=== PATIENT | female | born 1960 | race Two or more races ===

== ENCOUNTER 2020-04-08 10:02 | Emergency (ER) | payer OTHER ==
[2020-04-08 10:10] VITALS: TEMP 96.6; BMI 22.8
--- NOTE | 2020-04-08 10:30 | PDOC ---
History of Present Illness - General Chief Complaint: Weakness Stated Complaint: WEAKNESS,LETHARGY, FALL Time Seen by Provider: 04/08/20 10:26 - History of Present Illness Initial Comments: Shasha Acuña is a 59yo woman with a PMH of NIDDM, HTN, OA, recently seen at urgent care for left low back pain with sciatica (given naproxen and flexeril) who was brought to the ED by her daughter due to altered mental status this morning. Her daughter said that her mother may have taken an extra naproxen yesterday, but she was previously helping the patient take her medication. The daughter subsequently took the medication away last night as she was afraid that the pt overdosed; she says that her mother seemed somewhat confused last night, saying that she had called her daughter about taking extra medication when she had not done so. The daughter went to check on the pt this morning and found her poorly responsive, confused, and breathing abnormally. She also noted that the pt felt cold to touch and was shivering. She was very concerned and came to the ED immediately. As far as the daughter is aware, the pt has been eating normally until this morning. She is not aware of any recent symptoms, though she notes that they we re told on Saturday at urgent care that the patient had a temperature of 102; she has not had any fevers at home since that time. She has not taken any additional medications other than her BP meds, Januvia, and the recently prescribed naproxen and flexeril. Per the daughter, the patient is normally alert and oriented, independent, and active at baseline. Past History - Medical History Allergies/Adverse Reactions: Allergies Allergy/AdvReac Type Severity Reaction Status Date / Time No Known Allergies Allergy Verified 04/08/20 10:10 Home Medications: Ambulatory Orders Lisinopril [Prinivil] 20 mg PO DAILY 05/13/13 Sitagliptin Phos/Metformin HCl [Janumet 50-1,000 mg Tablet] 1 each PO BID 05/13/13 Omeprazole 20 mg PO DAILY 03/16/19 Anemia: No Asthma: No Cancer: No Cardiac Disorders: No CVA: No COPD: No CHF: No Dementia: No Diabetes: Yes GI Disorders: Yes (H.PYLORI) Disorders: No HTN: Yes Hypercholesterolemia: No Liver Disease: No Seizures: No Thyroid Disease: No - Surgical History Abdominal Surgery: No Appendectomy: No Cardiac Surgery: No Cholecystectomy: No Lung Surgery: No Neurologic Surgery: No Orthopedic Surgery: No - Reproductive History Is Patient Now?: No - Immunization History Immunization Up to Date: Yes - Psycho-Social/Smoking History Smoking History: Never smoked Have you smoked in the past 12 months: Yes Number of Cigarettes Smoked Daily: 4 Information on smoking cessation initiated: Yes - Substance Abuse Hx (Audit-C & DAST Scrn) How often the patient has a drink containing alcohol: Never Score: In Men: 4 or > Positive; In Women: 3 or > Positive: 0 Screen Result (Pos requires Nsg. Audit-10AR): Negative In the last yr the pt used illegal drug/Rx for NonMed reason: No Score: Yes response is considered Positive: 0 Screen Result (Positive result requires Nsg. DAST-10): Negative Review of Systems - Review of Systems Comments:: Could not adequately obtain due to altered mental status *Physical Exam - Vital Signs Last Vital Signs Temp Pulse Resp BP Pulse Ox 96.6 F L 107 H 21 H 111/92 100 04/08/20 10:07 04/08/20 10:07 04/08/20 10:07 04/08/20 10:04/08/20 10:07 - Physical Exam General: In respiratory acute distress, appears ill HEENT: Atraumatic, PERRL, EOMI, MMM, voice normal, no neck stiffness Cards: Tachycardic, no murmur appreciated Pulm: Markedly tachypnic, consistently deep breaths, clear to auscultation Abd: Soft, nontender, nondistended Ext: Atraumatic. No LE edema. Weak but moves all extremities against gravity Skin: Normal color, no rashes or lesions Neuro: Awake but sleepy, oriented to self and place (states August 2001), CN grossly intact, normal speech, motor/sensory symmetric Procedures - Central Line Central Line Lumen: triple Central Line Position: internal jugular (R) Anesthesia: 1% Lidocaine Amount of anesthesia (ccs): 2 Complications: none Post Central Line Insertion: sutured, good blood return, position confirmed w/ CXR Progress: Due to sudden hypotension the decision was made to place a central venous catheter for administration of vasopressors. Risks and benefits were discussed with the patient's daughter in detail. Consent was obtained verbally. The patient was prepped and draped in usual sterile fashion. 2cc of 1% lidocaine was used for local anesthesia. Under ultrasound guidance, a triple lumen catheter was placed in the right IJ vein using Seldinger technique. Placement was confirmed with ultrasound. The catheter was dressed with an antibiotic- containing dressing. The patient tolerated the procedure well, and no immediate complications were appreciated. Estrella Lopez PGY3 - Intubation Time of Intubation: 14:00 Intubation Method: orotracheal Blade used: Glidescope Tube Size (Fr): 7.5 Medications: Etomidate (20), Rocuronium (50) Tube position @ lip (cm): 23 Tube position confirmed by: Direct visualization, CO2 detector, Chest x-ray, Sylwia ath sounds Breath Sounds after Intubation: equal Intubation Complications: no complications Post Intubation Xray: Yes ED Treatment Course - LABORATORY CBC & Chemistry Diagram: 04/08/20 17:33 04/08/20 17:33 - RADIOLOGY Radiology Studies Ordered: Category Date Time Status HEAD CT WITHOUT CONTRAST [CT] Stat CT Scan 04/08/20 10:27 Ordered CHEST X-RAY PORTABLE* [RAD] Stat Radiology 04/08/20 10:26 Ordered Medical Decision Making - Medical Decision Making 04/08/20 10:29 Shasha Acuña is a 59yo woman with a PMH of NIDDM, HTN, OA, recently seen at [facility] for left low back pain with sciatica (given naproxen and flexeril) who was brought to the ED by her daughter due to altered mental status this morning. Her daughter said that her mother may have taken an extra naproxen yesterday, but she was previously helping the patient take her medication. The daughter subsequently took the medication away last night as she was afraid that the pt overdosed; she says that her mother seemed somewhat confused last night, saying that she had called her daughter about taking extra medication when she had not done so. The daughter went to check on the pt this morning and found her poorly responsive, confused, and breathing abnormally. She also noted that the pt felt cold to touch and was shivering. She was very concerned and came to the ED immediately. As far as the daughter is aware, the pt has been eating normally until this morning. She is not aware of any recent symptoms, though she notes that they were told on Wednesday at urgent care that the patient had a temperature of 102; she has not had any fevers at home since that time. She has not taken any additional medications other than her BP meds, Januvia, and the recently prescribed naproxen and flexeril. Per the daughter, the patient is normally alert and oriented, independent, and active at baseline. - Patient appears ill. Unlikely overdose as pt does not reportedly have any concerning medications; one extra naproxen does not account for symptoms - Broad differential including sepsis though no source as pt's daughter is unaware of any recent symptoms, unknown trauma, DKA - CBC, CMP, VBG, UA, BCx, UCx, lactate, trop, coags, EKG, CXR - Tachycardic, possible dehydration 04/08/20 10:47 - Glucose 37 - Given 1x amp D50 - D5 LR started at 100/hr - Attempting to obtain juice, crackers. Not currently available in the ED 04/08/20 11:13 - Rectal temp 93.3F - Justus kymgger - TSH, free T4, B-hydroxybuterate added to labs due to possible myxedema coma 04/08/20 11:35 - CBC resulted. WBC 29.6, platelets 57 - VBG with Ph 6.9, CO2 26, O2 57, yxmn6ey 5.7, BE -25 - Chemistry, lactate pending - Vanc and zosyn ordered 04/08/20 12:03 - Chemistry notable for hyponatremia to 130, hgb 10, platelets 57. ph 6.9, co2 26, o2 57, BE -25. - Lactate 15 - Elevated tbili to 6.6, elevated LFT's - Trop 0.09 - Aggressive fluid repletion for septic shock; may need pressors - Bicarb drip in D5 04/08/20 13:16 - POCUS gallbladder w/ wall measuring over 9mm, stone in neck. Suspect sepsis secondary to cholecystitis. Flagyl added - ICU team evaluated pt. Will accept for ICU, but called GI and surgery to ensure that pt would be able to obtain intervention immediately due to likely gallbladder pathology. Per discussion, may be unable to have immediate intervention - Discussed with family. Due to severity of illness, will plan to transfer the patient. Plan to place central line. Will obtain consent, discussed in detail with the patient's daughter, who agrees. 04/08/20 15:26 - Patient became unresponsive and markedly hypotensive with MAP in the 30's - Phenylephrine given peripherally - Central line placed emergently; risks and benefits had been verbally discussed with the patient's daughter previously. Repeat labs sent - Intubated for respiratory distress. Blood noted in oropharynx on insertion of glidescope. - Official US completed, read to be completed 04/08/20 15:53 - Official US with stone near neck of GB but no duct dilation - Dr Arroyo spoke to GI (Figueroa Riddle and Jennifer; Dr Riddle will see). Recommending IR consult - Spoke to IR, will take for perc mehran tube - Likely DIC. Blood from mouth, nose, rectum. Dark red blood from NGT. - Massive transfusion protocol started - pH 6.7, hgb 5.8, wbc 15, platelets 38. Potassium 6.6 - Lactate 15 - Calcium for hyperkalemia. Bicarb pushes PRN 04/08/20 18:09 - Patient taken for CTA CAP. Noted cirrhosis, esophogeal varicies. Significant fluid-filled dilation of stomach and small bowel. Per discussion, patient's daughter does endorse that she drinks heavily - Decision made to cancel IR procedure due to no GP pathology - Total 3L grossly bloody NGT output - Repeat labs sent again 04/08/20 18:25 - Now on levo 30, starting vaso - ETCO2 now in 30's from high of about 50. Map around 65. HR in 90's - Pt accepted for transfer to [facility] for surgical intervention - Consent to be signed by daughter. Transfer discussed in detail - Patient received a total of bicarb x7, calcium chloride x2, 5u pRBC, 3 FFP, 2 platelets. Pending additional 2u RBC, 3 FFP for transfer 04/08/20 19:29 - Additional 1u RBCs, 3x bicarb, 2x calcium given prior to transfer - EMS at bedside - Vasopressin and Phenylephrine started for hypotension, MAPs down to 40's Seen with Dr Cruz Lopez PGY3 Discharge - Discharge Information Problems reviewed: Yes Clinical Impression/Diagnosis: Multiorgan failure, Septic shock, UTI (urinary tract infection), Respiratory failure, Metabolic acidosis Condition: Critical Disposition: TRANSFER ACUTE CARE/OTHER HOSP - Follow up/Referral Referrals: Barrera Gamble MD [Primary Care Provider] - - Patient Discharge Instructions - Post Discharge Activity
[2020-04-08] MEDS ORDERED: DEXTROSE 50%-WATER 25 GM/50 ML DISP.SYRIN ONE (10:41)
[2020-04-08] MEDS ORDERED: DEXTROSE 50%-WATER - 25 GM/50 ML VIAL IVPUSH ONE (10:46)
[2020-04-08] MEDS: LACTATED RINGERS SOLUTION 1000 ML INFUS.BAG IV ONE ×2 (10:58→11:00)
[2020-04-08] MEDS ORDERED: DEXTROSE 5%-LACTATED RINGERS 1,000 ML IV SCH (11:00)
[2020-04-08 11:19] LABS: BASO % 0.1 % (0-2.0); EOS % 2.2 % (0-4.5); HEMATOCRIT 33.4 % (32.4-45.2); HEMOGLOBIN 10.2 GM/dL (10.7-15.3); LYMPH % 7.3 % (8-40); MCH 32.5 pg (25.7-33.7); MCHC 30.5 g/dl (32.0-36.0); MEAN CELL VOLUME 106.8 fl (80-96); MEAN PLT VOLUME 10.4 fl (7.5-11.1); MONO % 1.1 % (3.8-10.2); NEUT % 89.3 % (42.8-82.8); PLATELET COUNT 57 K/MM3 (134-434); RBC 3.12 M/mm3 (3.60-5.2); RDW 18.1 % (11.6-15.6); WHITE BLOOD COUNT 29.6 K/mm3 (4.0-10.0)
[2020-04-08 11:27] LABS: VENOUS BASE EXCESS -25.2 mmol/L (-2-2); VENOUS O2 SATURATION 70.9 % (70-80); VENOUS PCO2 26.5 mmHg (38-52)
[2020-04-08 11:30] LABS: VENOUS PH 6.947 (7.310-7.410)
[2020-04-08] MEDS ORDERED: PIPERACILLIN/TAZOB 3.375 GM 3.375 GM in DEXTROSE 5%-WATER - 50 ML IVPB ONE (11:33)
[2020-04-08] MEDS ORDERED: VANCOMYCIN 1 GM in D5W (PRE-DOCKED) 1,000 MG/250 ML IVPB ONE (11:33)
[2020-04-08] MEDS ORDERED: PIPERACILLIN/TAZOB 3.375 GM 3.375 GM/50 ML BAG IVPB ONE (11:42)
[2020-04-08] MEDS ORDERED: VANCOMYCIN 1 GRAM (PRE-DOCKED) 1,000 MG/250 ML BAG IVPB ONE (11:42)
[2020-04-08 11:51] LABS: ALBUMIN 1.9 g/dl (3.4-5.0); BILIRUBIN,TOTAL 6.6 mg/dL (0.2-1); BLOOD UREA NITROGEN 65.2 mg/dL (7-18); CALCIUM 8.8 mg/dL (8.5-10.1); CREATININE 3.1 mg/dL (0.55-1.3); POTASSIUM 4.6 mmol/L (3.5-5.1)
[2020-04-08] MEDS ORDERED: LACTATED RINGERS SOLUTION 1000 ML INFUS.BAG IV ONE (11:54)
--- NOTE | 2020-04-08 11:59 | PDOC ---
Documentation entered by Ivone Baird SCRIBE, acting as scribe for Michael Arroyo MD. Michael Arroyo MD: This documentation has been prepared by the westonibeOli Lincy, SCRIBE, under my direction and personally reviewed by me in its entirety. I confirm that the documentation accurately reflects all work, treatment, procedures, and medical decision making performed by me. Attending Attestation - Resident Resident Name: JessicaEstrella - ED Attending Attestation I have performed the following: I have examined & evaluated the patient, The case was reviewed & discussed with the resident, I agree w/resident's findings & plan, Exceptions are as noted - HPI HPI: 04/08/20 10:37 The patient is a 59-year-old female with a past medical history significant for DM and HTN who presents to the emergency department with AMS and weakness since yesterday. The patient was seen at urgent care on Saturday for back pain, she was given a shot and PO medication for the pain and was tested for COVID secondary to a slight fever. The patients daughter reports the patient was doing fine following the UC visit until yesterday when the patient was noted to be weak. The daughter reports the patient was noted to be more confused today with difficulty getting up and ambulating. The daughter brought the patient to the ER for further management. Denies fever, chills, chest pain, nausea, vomiting, diarrhea, back pain, urinary complaints or change in bowel habits. Denies headache or dizziness. - Physicial Exam PE: 04/08/20 10:42 GENERAL: The patient is awake, alert, and oriented x2, slow to respond HEAD: Normocephalic, atraumatic. EYES: extraocular movements intact, sclera anicteric, conjunctiva clear. ENT: +dry mucous membranes. Normal voice, NECK: Normal range of motion, supple without lymphadenopathy, JVD, or masses. LUNGS: Breath sounds equal, clear to auscultation bilaterally. No wheezes, no crackles, no rales. HEART: Regular rate and rhythm, normal S1 and S2 without murmur, rub or gallop. ABDOMEN: Soft, nontender, normoactive bowel sounds. No guarding, no rebound. No masses. EXTREMITIES: Normal range of motion, no edema. No clubbing or cyanosis. No cords, erythema, or tenderness. NEUROLOGICAL: Alert and oriented x2. No facial asymmetry, Normal speech, moveing all 4 extremities spontaneously PSYCH: Normal mood, normal affect. SKIN: Warm, Dry, normal turgor, no rashes or lesions noted. - Critical Care Time Total Critical Care Time: 160 Critical Care Statement: The care of this patient involved high complexity decision making to prevent further life threatening deterioration of the patient's condition and/or to evaluate & treat vital organ system(s) failure or risk of failure. - Medical Decision Making 04/08/20 10:33 59y F hx of htn, dm presents with AMS had recently gone to for back pain, was fine until yesterday when she became more weak/sleaping poorly noted to be AMS this morning by daughter no focal complaints by patient on exam, pt noted to be dry, tachypneic, aox2, neuro intact ddx wide - possible anemia, metabolic derangement, infection sepsi orderset obtained will give fluids as she appears dry will obtain bgm head ct 04/08/20 11:50 labs reviewed noted for acidosis, likely metabolic acidosis - also noted hyperthermic, hypogclyemic - given d50 also noted with significant WBC elevatino - ?sepsis - pt startedon broad spectrum abx awaiting UA, CMP 04/08/20 11:53 chemistry noted for significant AG LFTs elevated T Buili 04/08/20 11:58 will obtain RUQ US pts BP low - will continue fluid resusitation, may need pressors if not responding awaiting lactic acid and determnation of source 04/08/20 12:47 The patient's lab urine also reviewed and noted for UTI, lactic acid elevated to 21 The patient's right upper quadrant ultrasound bedside noted for thickened gallbladder wall, concern for possible cholangitis Case discussed with ICU 04/08/20 14:16 forma US noted for 4.5m GB neck stone concern for cholangitis/sepsis will page GI for ERCP pt bp persistently low, in process of puttig central line will start peripheral levephed 04/08/20 14:53 Central line was placed by dr. Lopez under my observation due to hypotension. Shortly after the patient's respiratory rate decreased and patient became less responsive, there were pulses palpable. The patient was moved to room 10 the patient had a brief episode of bradycardia/asystole lasting approximately 6 or 7 seconds however heart rate spontaneously returned with palpable pulses. The patient was given dextrose 50, 2 amps of bicarb, patient's blood pressure was approximately 90s over 60s at this point status post peripheral pressros pt was intubated using RSI with first pass success by Dr. Lopez, there was a significant amount of red blood in her posterior pharynx when dr. Lopez looked into her airway. pt started on levophed and bicarb gtt The patient's abdomen does appear more firm than previously, questionable perfed abdomen. NTG placed 04/08/20 15:09 case car[facility] surgery, concern for perforation they will come see the patient. awaiting GI call back originally had called dr. Riddle but his call does not start until 5pm. call paged out to dr. Zamudio / GI Service 04/08/20 15:42 surgery bedside evaluating the patient. case [facility] GI recommends discussing with IR for percchole will obtain DIC labs/MTP hgb dropped from 10-->5 NGT was curled in [facility], after replacing, pt had significant amount of blood in the NGT, 04/08/20 15:47 = 04/08/20 16:[address] abd to determine cause of her abd distension - blood vs air pt recdeived 4u PRBC, will give FFP and platelets 04/08/20 17:58 case carlitos du - surgery - pt does not sound like a stable surgical candidate at this time, but recommends ICU transfer - case with ICU from [facility] -accepted by ICU, to dr. Graf service in the ICU will continue to stabilizing the patient pt with large amount of bblood from the NGT onCT, pt noted to have cirrhosis and possible varicies - daughter endorsed pt does have a hx of drinking, but does not know if she has a hx of GIB/ulcers. willl add octreotide. continuing MTP, prn bicarb gtt Heart Score/ECG Review - ECG Impressions Comment:: 04/08/20 11:51 Twelve-lead EKG was performed and reviewed by me. There is normal sinus rhythm with a rate of 122 non specific TWI abnormality sinus tachycardia Discharge - Discharge Information Problems reviewed: Yes Clinical Impression/Diagnosis: Multiorgan failure, Septic shock, Metabolic acidosis UTI (urinary tract infection) Qualifiers: Urinary tract infection type: site unspecified Hematuria presence: with hematuria Qualified Code(s): N39.0 - Urinary tract infection, site not specified Respiratory failure Qualifiers: Chronicity: acute Respiratory failure complication: hypoxia Qualified Code(s): J96.01 - Acute respiratory failure with hypoxia Condition: Critical Disposition: TRANSFER ACUTE CARE/OTHER HOSP - Admission No - Follow up/Referral Referrals: Barrera Gamble MD [Primary Care Provider] - - Patient Discharge Instructions - Post Discharge Activity - Transfer to Acute Care Facility [facility] Accepting Physician:: Dr. Antunez
[2020-04-08 12:06] LABS: ACTIVATED PTT 88.5 SECONDS (25.2-36.5); INR 2.71 (0.83-1.09); PROTHROMBIN TIME (PATIENT) 32.3 SEC (9.7-13.0)
[2020-04-08 12:11] LABS: EPI CELLS >36 /uL (0-25.1); HYALINE CASTS 24 /uL (0-3.1); URINE APPEARANCE TURBID; URINE BILIRUBIN 1+ (NEGATIVE); URINE COLOR DK YELLOW; URINE GLUCOSE (UA) NEGATIVE (NEGATIVE); URINE KETONE TRACE (NEGATIVE); URINE LEUK ESTERASE 1+ (NEGATIVE); URINE NITRITE POSITIVE (NEGATIVE); URINE PROTEIN 2+ (NEGATIVE); URINE WBC 160 /uL (0-25.8)
[2020-04-08] MEDS ORDERED: MUPIROCIN 2% TOPICAL OINTMENT FOR DECOLONIZATION NS SCH (12:30)
[2020-04-08] MEDS ORDERED: SODIUM BICARBONATE 8.4% - 150 MEQ in DEXTROSE 5%-WATER - 950 ML IVPB SCH (12:30)
[2020-04-08] MEDS ORDERED: SODIUM BICARBONATE 8.4% - 150 MEQ in DEXTROSE 5%-WATER - 950 ML IVPB ONE (12:45)
[2020-04-08 12:47] LABS: URINE BACTERIA 96.5 /uL (0-1359); URINE RBC 102.5 /uL (0-23.9); YEAST NON SEEN (NEGATIVE)
[2020-04-08 12:55] LABS: ANISOCYTOSIS 2+; MACROCYTOSIS 2+; PLATELET ESTIMATE DECREASED
[2020-04-08] MEDS ORDERED: PHENYLEPHRINE HCL 10 MG/1 ML SINGLE DOSE VIAL IVPB PRN ×2 (14:00→19:47)
[2020-04-08] MEDS ORDERED: NOREPINEPHRINE BITARTRATE 4 MG/4 ML ML IV ONE ×2 (14:10→14:11)
[2020-04-08] MEDS ORDERED: PHENYLEPHRINE HCL 10 MG/1 ML SINGLE DOSE VIAL ONE ×2 (14:12→19:02)
[2020-04-08] MEDS ORDERED: NOREPINEPHRINE BITARTRATE 16,000 MCG in SODIUM CHLORIDE 484 ML IV SCH (14:15)
[2020-04-08] MEDS ORDERED: RAPID SEQUENCE INTUBATION KIT NR ONE (14:33)
[2020-04-08 14:40] LABS: VENOUS PCO2 54.3 mmHg (38-52)
[2020-04-08 14:43] LABS: VENOUS PH < 6.717 (7.310-7.410)
[2020-04-08] MEDS ORDERED: FENTANYL INJECTION 500 MCG in DEXTROSE 5%-WATER - 90 ML IVPB SCH (14:45)
[2020-04-08] MEDS ORDERED: DEXMEDETOMIDINE IN 0.9 % NACL 400 MCG/100 ML VIAL IVPB SCH (14:45)
--- NOTE | 2020-04-08 14:46 | EKG ---
Test Reason : Blood Pressure : / mmHG Vent. Rate : 122 BPM Atrial Rate : 122 BPM P-R Int : 176 ms QRS Dur : 100 ms QT Int : 284 ms P-R-T Axes : 098 037 116 degrees QTc Int : 404 ms ATRIAL FIBRILLATION NONSPECIFIC ST AND T WAVE ABNORMALITY ABNORMAL ECG Confirmed by TANNER ALONSO MD ([id number]) on 04/08/2020 2:46:38 PM Referred By: Confirmed By:TANNER ALONSO MD
[2020-04-08 14:58] LABS: BASO % 0.4 % (0-2.0); EOS % 1.8 % (0-4.5); HEMOGLOBIN 5.8 GM/dL (10.7-15.3); LYMPH % 13.1 % (8-40); MCH 33.7 pg (25.7-33.7); MCHC 29.1 g/dl (32.0-36.0); MEAN PLT VOLUME 10.3 fl (7.5-11.1); MONO % 0.9 % (3.8-10.2); NEUT % 83.8 % (42.8-82.8); PLATELET COUNT 38 K/MM3 (134-434); RBC 1.73 M/mm3 (3.60-5.2); RDW 18.4 % (11.6-15.6); WHITE BLOOD COUNT 14.8 K/mm3 (4.0-10.0)
[2020-04-08] MEDS ORDERED: TRIPLE LUMEN FLUSH 4 ML ML IVPUSH PRN (15:01)
[2020-04-08 15:10] LABS: ALBUMIN 1.1 g/dl (3.4-5.0); BLOOD UREA NITROGEN 58.1 mg/dL (7-18); CALCIUM 8.2 mg/dL (8.5-10.1); CREATININE 2.9 mg/dL (0.55-1.3)
[2020-04-08 15:15] LABS: BILIRUBIN,TOTAL 3.8 mg/dL (0.2-1)
[2020-04-08 15:37] LABS: POTASSIUM 6.6 mmol/L (3.5-5.1)
[2020-04-08] MEDS ORDERED: PANTOPRAZOLE SODIUM 80 MG in SODIUM CHLORIDE 100 ML IVPB ONE (15:48)
--- NOTE | 2020-04-08 15:56 | CON.GI ---
Consult Consult Specialty:: GI coverage - History of Present Illness History of Present Illness: 59 y/o F with PMH of cirrhosis was admitted with change in mental status and weakness. In the Er, she was noted to have right upper quadrant pain. Her lactid acid was high, low platelets, elevated INR> Her abdominal ultrasound was noted to have partially distended gallbladder with as tone in the neck of the gallbladder her CBD was normal. Her T. bilirubin was 6 which decreased to 3 after IV hydration. She was noted to have pyuria.She developed respiratory failure and was eventually intubated. Went to see the patient in the Catscan and discuseed films with Dr Gibson. The Gallbladder was contracted and no evidence of dilated CBD.The Stomach was markedly dilated and and jejeunum was dilated consistent with small bowel obstruction. The NGT was in place but was nor draining Patient later in the ED developed hematemsis and rectal bleeding. - Past Medical History Cardio/Vascular: Yes: HTN ...: No Endocrine: Yes: Diabetes Mellitus - Past Surgical History Past Surgical History: Yes: - Alcohol/Substance Use Hx Alcohol Use: No History of Substance Use: reports: None - Smoking History Smoking history: Never smoked Have you smoked in the past 12 months: Yes Aproximately how many cigarettes per day: 4 - Social History ADL: Independent Occupation: retired, former seamstress History of Recent Travel: No Home Medications - Allergies Allergies/Adverse Reactions: Allergies Allergy/AdvReac Type Severity Reaction Status Date / Time No Known Allergies Allergy Verified 04/08/20 10:10 - Home Medications Home Medications: Ambulatory Orders Lisinopril [Prinivil] 20 mg PO DAILY 05/13/13 Sitagliptin Phos/Metformin HCl [Janumet 50-1,000 mg Tablet] 1 each PO BID 05/13/13 Omeprazole 20 mg PO DAILY 03/16/19 Physical Exam-GI Vital Signs: Vital Signs Temperature 96.6 F L 04/08/20 10:07 Pulse Rate 126 H 04/08/20 14:20 Respiratory Rate 20 04/08/20 14:50 Blood Pressure 97/54 L 04/08/20 14:20 O2 Sat by Pulse Oximetry (%) 99 04/08/20 11:30 Constitutional: Yes: Other (intubated unresponsive) Eyes: Yes: Sclera Icterus Neck: Yes: Trachea Midline Cardiovascular: Yes: Regular Rate and Rhythm Respiratory: Yes: CTA Bilaterally Gastrointestinal Inspection: Yes: Distention ...Auscultate: Yes: No Bowel Sounds ...Palpate: Yes: Soft. No: Firm/Rigid, Guarding, Hepatomegaly, Mass, Pulsatile Mass, Splenomegaly, Tenderness, Tenderness, Epigastium, Tenderness, Rebound ...Percussion: Yes: Tympanitic Labs: CBC, BMP 04/08/20 13:40 04/08/20 13:40 INR, PTT INR 2.71 (0.83-1.09) H 04/08/20 11:50 CBC,CMP WBC 6.5 K/mm3 (4.0-10.0) 04/08/20 17:33 RBC 2.08 M/mm3 (3.60-5.2) L 04/08/20 17:33 Hgb 6.2 GM/dL (10.7-15.3) L* 04/08/20 17:33 Hct 19.7 % (32.4-45.2) L 04/08/20 17:33 MCV 94.4 fl (80-96) D 04/08/20 17:33 MCH 29.8 pg (25.7-33.7) D 04/08/20 17:33 MCHC 31.6 g/dl (32.0-36.0) L 04/08/20 17:33 RDW 16.9 % (11.6-15.6) H 04/08/20 17:33 Plt Count 18 K/MM3 (134-434) L* D 04/08/20 17:33 MPV 8.5 fl (7.5-11.1) D 04/08/20 17:33 Absolute Neuts (auto) 5.3 K/mm3 (1.5-8.0) 04/08/20 17:33 Neutrophils % 81.2 % (42.8-82.8) 04/08/20 17:33 Neutrophils % (Manual) 39.5 % (42.8-82.8) L 04/08/20 17:33 Band Neutrophils % 24.2 % 04/08/20 17:33 Lymphocytes % 15.8 % (8-40) D 04/08/20 17:33 Lymphocytes % (Manual) 11.0 % (8-40) D 04/08/20 17:33 Monocytes % 0.6 % (3.8-10.2) L 04/08/20 17:33 Monocytes % (Manual) 8 % (3.8-10.2) D 04/08/20 17:33 Eosinophils % 2.3 % (0-4.5) 04/08/20 17:33 Eosinophils % (Manual) 0.0 % (0-4.5) 04/08/20 17:33 Basophils % 0.1 % (0-2.0) 04/08/20 17:33 Basophils % (Manual) 0.0 % (0-2.0) 04/08/20 17:33 Myelocytes % (Man) 3 % (0-2) H D 04/08/20 17:33 Promyelocytes % (Man) 2 % (0-2) D 04/08/20 17:33 Blast Cells % (Manual) 0 % (0-0) 04/08/20 17:33 Nucleated RBC % 3 % (0-0) H 04/08/20 17:33 Metamyelocytes 12 % (0-2) H D 04/08/20 17:33 Hypochromia 0 04/08/20 13:40 Platelet Estimate Decreased 04/08/20 17:33 Polychromasia 0 04/08/20 13:40 Poikilocytosis 1+ 04/08/20 10:30 Anisocytosis 1+ 04/08/20 13:40 Microcytosis 0 04/08/20 13:40 Macrocytosis 0 04/08/20 13:40 Harper Cells 2+ 04/08/20 13:40 Sodium 133 mmol/L (136-145) L 04/08/20 17:33 Potassium 7.8 mmol/L (3.5-5.1) H* 04/08/20 17:33 Chloride 85 mmol/L (98-107) L 04/08/20 17:33 Carbon Dioxide 19 mmol/L (21-32) L 04/08/20 17:33 Anion Gap 29 MMOL/L (8-16) H 04/08/20 17:33 BUN 51.1 mg/dL (7-18) H 04/08/20 17:33 Creatinine 2.6 mg/dL (0.55-1.3) H 09/11/20 17:33 Est GFR (CKD-EPI)AfAm 22.18 04/08/20 17:33 Est GFR (CKD-EPI)NonAf 19.14 04/08/20 17:33 POC Glucometer 275 UNITS (80-120) 04/08/20 18:36 Random Glucose 402 mg/dL (74-106) H* 04/08/20 17:33 Lactic Acid > 15.0 mmol/L (0.4-2.0) H* 04/08/20 13:40 Calcium 7.9 mg/dL (8.5-10.1) L 04/08/20 17:33 Phosphorus 12.9 mg/dL (2.5-4.9) H* 04/08/20 17:33 Magnesium 2.8 mg/dL (1.8-2.4) H 04/08/20 17:33 Total Bilirubin 1.3 mg/dL (0.2-1) H D 04/08/20 17:33 AST 213 U/L (15-37) H 04/08/20 17:33 ALT 44 U/L (13-61) 04/08/20 17:33 Alkaline Phosphatase 88 U/L (45-117) 04/08/20 17:33 Troponin I 0.09 ng/ml (0.00-0.05) H 04/08/20 10:30 Total Protein 1.2 g/dl (6.4-8.2) L 04/08/20 17:33 Albumin 0.5 g/dl (3.4-5.0) L 04/08/20 17:33 Total Amylase 107 U/L (25-115) 04/08/20 10:30 Lipase 1702 U/L (73-393) H 04/08/20 10:30 Beta-Hydroxybutyrate 3.6 mg/dL (0.2-2.8) H 04/08/20 10:30 TSH 0.52 uIU/ml (0.358-3.74) 04/08/20 10:30 Thyroxine (T4) 7.7 ug/dl (4.5-13.9) 04/08/20 10:30 Assessment/Plan A> 1)Septic shock associated with DIC possibly secondary to Urosepsis unlikely secondary to cholangitis because of normal CBD. Patient noted to has a stone in Gallbladder neck although no evidence of cholecystitis and partially contracted. R> continue IV hydration please review with IR if percutaneous cholecystostomy is beneficial 2) Upper GI bleeding r/o varices ,peptic ulcer disease---emergent EGD was planned once medically unstable. Patient also noted to have lactic acidosis and evidence of SBO,the presence of gangrenous bowel was suspected. The patient was transferred for further evaluation and management. 3)Severe anemia- acute drop in hemoglobin in the absence of melena, rectal bleeding. This possibly from hydration and hemolysis from DIC. R> haptoglobin transfuse to HCT > 8 4)Elevated T.bili possibly secondary to sepsis 5) history of cirrhosis etiology unclear
--- NOTE | 2020-04-08 15:56 | CONSULT ---
Consult Consult Specialty:: Nephrology Reason for Consultation:: elias - History of Present Illness Chief Complaint: altered mental status and weakness since yesterday History of Present Illness: Pt is a 59 year old female with pmhx of dm, htn and osteoarthritis who presents with altered mental status and weakness. She is lethargic and unable to give history. Pt is crashing and a stat consult was called for elias. Her daughter is at bedside and assisted with history. Pt had left low back pain and went to urgent care on Saturday. She was given naproxen and flexeril. She continues to have have pain all week. She took extra naproxen. She was found have markedly elevated lactic acid. She developed progressive resp failure in the ER and was intubated. Pt was also hypotensive. - History Source History Provided By: Family Member, Medical Record - Past Medical History Cardio/Vascular: Yes: HTN ...: No Endocrine: Yes: Diabetes Mellitus - Past Surgical History Past Surgical History: Yes: - Alcohol/Substance Use Hx Alcohol Use: No History of Substance Use: reports: None - Smoking History Smoking history: Never smoked Have you smoked in the past 12 months: Yes Aproximately how many cigarettes per day: 4 - Social History ADL: Independent Occupation: retired, former seamstress History of Recent Travel: No Home Medications - Allergies Allergies/Adverse Reactions: Allergies Allergy/AdvReac Type Severity Reaction Status Date / Time No Known Allergies Allergy Verified 04/08/20 10:10 - Home Medications Home Medications: Ambulatory Orders Lisinopril [Prinivil] 20 mg PO DAILY 05/13/13 Sitagliptin Phos/Metformin HCl [Janumet 50-1,000 mg Tablet] 1 each PO BID 05/13/13 Omeprazole 20 mg PO DAILY 03/16/19 Family Medical History Family History: Unable to Obtain Review of Systems Unable to obtain ROS, reason: intubated Physical Exam Vital Signs: Vital Signs Temperature 96.6 F L 04/08/20 10:07 Pulse Rate 126 H 04/08/20 14:20 Respiratory Rate 20 04/08/20 14:50 Blood Pressure 97/54 L 04/08/20 14:20 O2 Sat by Pulse Oximetry (%) 99 04/08/20 11:30 Constitutional: Yes: Severe Distress Eyes: Yes: Conjunctiva Clear Cardiovascular: Yes: Tachycardia, S1, S2 Respiratory: Yes: Mechanically Ventilated Gastrointestinal: Yes: Distention Renal/: Yes: Incontinence Musculoskeletal: Yes: Muscle Weakness Edema: No Integumentary: Yes: Other (skin mottling lower extremities) Neurological: Yes: Lethargy Labs: CBC, BMP 04/08/20 13:40 04/08/20 13:40 Laboratory Tests 04/08/20 04/08/20 04/08/20 10:30 10:30 10:30 WBC 29.6 H Hgb 10.2 L Plt Count 57 L D VBG pH 6.947 L* POC VBG pCO2 26.5 L POC VBG pO2 56.9 H Sodium 130 L Potassium 4.6 Chloride 90 L Carbon Dioxide 8 L Anion Gap 31 H BUN 65.2 H Creatinine 3.1 H POC Glucometer Random Glucose 38 L* Lactic Acid AST 396 H ALT 109 H Urine Protein Urine Blood 04/08/20 04/08/20 04/08/20 10:30 10:40 11:30 WBC Hgb Plt Count VBG pH POC VBG pCO2 POC VBG pO2 Sodium Potassium Chloride Carbon Dioxide Anion Gap BUN Creatinine POC Glucometer 34 127 Random Glucose Lactic Acid 21.5 H* AST ALT Urine Protein Urine Blood 04/08/20 04/08/20 04/08/20 11:50 13:40 13:40 WBC 14.8 H Hgb 5.8 L* Plt Count 38 L D VBG pH POC VBG pCO2 POC VBG pO2 Sodium Potassium Chloride Carbon Dioxide Anion Gap BUN Creatinine POC Glucometer Random Glucose Lactic Acid > 15.0 H* AST ALT Urine Protein 2+ H Urine Blood 1+ H 04/08/20 04/08/20 13:40 13:40 WBC Hgb Plt Count VBG pH < 6.717 L* POC VBG pCO2 54.3 H POC VBG pO2 61.4 H Sodium 131 L Potassium 6.6 H* Chloride Carbon Dioxide 10 L Anion Gap BUN 58.1 H Creatinine 2.9 H POC Glucometer Random Glucose 54 L Lactic Acid AST 407 H ALT 104 H Urine Protein Urine Blood Imaging - Results Chest X-ray: Report Reviewed Problem List - Problems (1) Hyperkalemia Code(s): E87.5 - HYPERKALEMIA (2) ELIAS (acute kidney injury) Code(s): N17.9 - ACUTE KIDNEY FAILURE, UNSPECIFIED (3) Shock Code(s): R57.9 - SHOCK, UNSPECIFIED (4) Respiratory failure Code(s): J96.90 - RESPIRATORY FAILURE, UNSP, UNSP W HYPOXIA OR HYPERCAPNIA (5) Arthritis Code(s): M19.90 - UNSPECIFIED OSTEOARTHRITIS, UNSPECIFIED SITE Assessment/Plan Current Medications Generic Name Dose Route Start Last Admin Trade Name Freq PRN Reason Stop Dose Admin Chlorhexidine Gluconate 1 applic 04/08/20 22:00 Hibiclens For Decolonization - TP HS GWENDOLYN IV Flush 4 ml 04/08/20 15:01 Triple Lumen Flush IVPUSH PRN PRN Protocol Dextrose/Lactated Ringer's 1,000 mls @ 125 mls/hr 04/08/20 11:00 04/08/20 11:00 D5-Lr - IV 125 mls/hr ASDIR GWENDOLYN Administration Sodium Bicarbonate 150 meq/ 1,100 mls @ 125 mls/hr 04/08/20 12:45 04/08/20 14:04 Dextrose IVPB 04/08/20 21:32 125 mls/hr NOW ONE Administration Norepinephrine Bitartrate 16, 500 mls @ 9.375 mls/hr 04/08/20 14:15 04/08/20 14:20 000 mcg/ Sodium Chloride IV 5 mcg/min TITR GWENDOLYN 9.375 mls/hr Administration Protocol 5 MCG/MIN Fentanyl 500 mcg/ Dextrose 100 mls @ 0 mls/hr 04/08/20 14:45 04/08/20 14:55 IVPB 25 mcg/hr TITR GWENDOLYN 5 mls/hr Administration Titrate Dexmedetomidine/Sodium Chloride 400 mcg in 100 mls @ 2.654 mls/hr 04/08/20 14:45 04/08/20 15:10 Precedex 400 Mcg/100 Ml Inject IVPB 0.2 mcg/kg/hr TITR GWENODLYN 2.654 mls/hr Administration 0.2 MCG/KG/HR Pantoprazole Sodium 80 mg/ 100 mls @ 200 mls/hr 04/08/20 15:48 Sodium Chloride IVPB 04/08/20 16:17 ONCE ONE Mupirocin 1 applic 04/08/20 12:30 Bactroban Ointment (For Decolonization) - NS 04/13/20 12:29 BID GWENDOLYN Phenylephrine HCl 200 mcg 04/08/20 14:00 Carlos-Synephrine - IVPB Q3M PRN HYPOTENSION Impression 1. ELIAS 2. hyperkalemia 3. lactic acidosis 4. resp failure 5. shock 6. dm 7. hx htn 8. back pain 9. possible perforation with abd distension 10. anemia Plan - start bicarb drip, pushed two amps of bicarb - start pressors - cont vent support - treat potassium medically - surgery and GI eval - discussed with ER - pt is too unstable for dialysis therapy at this point - do not restart metformin, lisiniprol or naproxen - will require icu admission - pt has a distended abdomen that is suspicious of an intra-abdmonial process, surgery eval called - cont aggressive fluids - prognosis is guarded
[2020-04-08] MEDS ORDERED: SODIUM BICARBONATE 8.4% - 150 ML ONE (16:09)
[2020-04-08] MEDS: SODIUM BICARBONATE 8.4% 50 MEQ/50 ML DISP.SYRIN IVPUSH PRN ×6 (16:10→17:40)
[2020-04-08] MEDS ORDERED: CALCIUM CHLORIDE 1 GM/10 ML *DISP.SYRIN ONE ×2 (16:10→19:16)
[2020-04-08] MEDS: CALCIUM CHLORIDE 10% 1 GM/10 ML *VIAL IVPUSH PRN ×2 (16:28→17:00)
[2020-04-08] MEDS ORDERED: SODIUM BICARBONATE 8.4% - 50 ML ONE (16:31)
[2020-04-08] MEDS ORDERED: INSULIN REGULAR HUMAN 100 UNITS/ML *VIAL IVPUSH ONE ×2 (16:59→18:24)
[2020-04-08] MEDS ORDERED: ALBUTEROL SO4 0.042% IH SOL 1.25 MG/3 ML VIAL.NEB NEB ONE (16:59)
--- NOTE | 2020-04-08 17:14 | PN ---
Teaching Attending Note Name of Resident: Rosas Anderson ATTENDING PHYSICIAN STATEMENT I saw and evaluated the patient. I reviewed the resident's note and discussed the case with the resident. I agree with the resident's findings and plan as documented. SUBJECTIVE: Patient seen and examined in the ER. 59 F, DM, HTN, osteoarthritis. Admitted via the ER due to altered mental status and weakness. Apparently have been have back pain and change in mental status since saturday. Decompensated and required endotracheal intubation. TLC inserted. Patient now taken to IR for CT angiogram. Constitutional: Yes: Severe Distress Eyes: Yes: Conjunctiva Clear Cardiovascular: Yes: Tachycardia, S1, S2 Respiratory: Yes: Mechanically Ventilated Gastrointestinal: Yes: Distention Renal/: Yes: Incontinence Musculoskeletal: Yes: Muscle Weakness Edema: No Integumentary: Yes: (+) mottling Neurological: Yes: Lethargy Labs: Laboratory Tests 04/08/20 04/08/20 04/08/20 10:30 10:30 10:30 WBC 29.6 H Hgb 10.2 L Plt Count 57 L D VBG pH 6.947 L* POC VBG pCO2 26.5 L POC VBG pO2 56.9 H Sodium 130 L Potassium 4.6 Chloride 90 L Carbon Dioxide 8 L Anion Gap 31 H BUN 65.2 H Creatinine 3.1 H POC Glucometer Random Glucose 38 L* Lactic Acid AST 396 H ALT 109 H Urine Protein Urine Blood 04/08/20 04/08/20 04/08/20 10:30 10:40 11:30 WBC Hgb Plt Count VBG pH POC VBG pCO2 POC VBG pO2 Sodium Potassium Chloride Carbon Dioxide Anion Gap BUN Creatinine POC Glucometer 34 127 Random Glucose Lactic Acid 21.5 H* AST ALT Urine Protein Urine Blood 04/08/20 04/08/20 04/08/20 11:50 13:40 13:40 WBC 14.8 H Hgb 5.8 L* Plt Count 38 L D VBG pH POC VBG pCO2 POC VBG pO2 Sodium Potassium Chloride Carbon Dioxide Anion Gap BUN Creatinine POC Glucometer Random Glucose Lactic Acid > 15.0 H* AST ALT Urine Protein 2+ H Urine Blood 1+ H 04/08/20 04/08/20 13:40 13:40 WBC Hgb Plt Count VBG pH < 6.717 L* POC VBG pCO2 54.3 H POC VBG pO2 61.4 H Sodium 131 L Potassium 6.6 H* Chloride Carbon Dioxide 10 L Anion Gap BUN 58.1 H Creatinine 2.9 H POC Glucometer Random Glucose 54 L Lactic Acid AST 407 H ALT 104 H Urine Protein Urine Blood Problem List - Problems (1) Hyperkalemia Code(s): E87.5 - HYPERKALEMIA (2) ELIAS (acute kidney injury) Code(s): N17.9 - ACUTE KIDNEY FAILURE, UNSPECIFIED (3) Shock Code(s): R57.9 - SHOCK, UNSPECIFIED (4) Respiratory failure Code(s): J96.90 - RESPIRATORY FAILURE, UNSP, UNSP W HYPOXIA OR HYPERCAPNIA (5) Arthritis Code(s): M19.90 - UNSPECIFIED OSTEOARTHRITIS, UNSPECIFIED SITE Assessment/Plan Acute Respiratory Failure R/O Bowel Obstruction R/O DIC Sepsis : source likely GI +/- ELIAS Hyperkalemia Severe Lactic acidosis Hypovolemic shock : R/O Septic Shock DM HTN Anemia Suspected ARDS Plan NGT has been inserted Aggressive IVF Close follow up of K+ level and treatment Noted Renal evaluation and GI evaluation and Surgical evaluation Bicarbonate drip Pressors to maintain MAP > 65 AC Mode of vent with LTTV Strict I & O Check COVID19 serology Schafer-culture Broad ABX coverage Transfusional support ED staff has reached out to tertiary care center for possible transfer as the patient may require eventual surgical intervention and support that would be better served in a Tertiary care center Overall prognosis appears grave. Dr Perea Critical care time spent in reviewing chart, evaluating patient and formulating plan - 36 minutes.
--- NOTE | 2020-04-08 17:29 | CONSULT ---
- Consultation REQUESTING PROVIDER: CONSULT REQUEST: We have been asked to surgically evaluate this patient for acute cholecystitis. Hospitalist: HISTORY OF PRESENT ILLNESS: DIANNE who is a 59 y/o female brought to the ED by her daughter/ambulance after being found unresponsive at home PMHx: HTN/NIDDM/OA PSHx: none known e/f C-S Home Medications Medication Instructions Recorded Lisinopril [Prinivil] 20 mg PO DAILY 05/13/13 Sitagliptin Phos/Metformin HCl 1 each PO BID 05/13/13 [Janumet 50-1,000 mg Tablet] Omeprazole 20 mg PO DAILY 03/16/19 Allergies Allergy/AdvReac Type Severity Reaction Status Date / Time No Known Allergies Allergy Verified 04/08/20 10:10 REVIEW OF SYSTEMS: unobtainable from the patient and her daughter w/any accuracy h/e she does state the patient drinks 1 6 pack of beer daily for ## years. She has been " sick "for at least one week taking NSAIDS for pain and muscle relaxers; the rest of the hx. as noted elsewhere. PHYSICAL EXAM: GENERAL: Lethargic and obtunded HEAD: Normal with no signs of trauma. EYES: sclera anicteric, conjunctiva clear. NECK: Normal ROM, supple without lymphadenopathy, JVD, or masses. ABDOMEN:Distended ? tender ?, hypo active bowel sounds, ? guarding, no rebound, no masses. No organomegaly. No hernias; ? scar at the umbilicus. MUSCULOSKELETAL: Normal ROM at all joints. No bony deformities or tenderness. No CVA tenderness. UPPER EXTREMITIES: 2+ pulses, warm, well-perfused. No cyanosis. Cap refill <2 seconds. No peripheral edema. LOWER EXTREMITIES: 1+ pulses, cool; poorly perfused. No calf tenderness. No peripheral edema. NEUROLOGICAL: gait not observed. SKIN:Cool, dry, normal turgor, no rashes or lesions noted. Vital Signs Temperature 96.6 F L 04/08/20 10:07 Pulse Rate 126 H 04/08/20 14:20 Respiratory Rate 20 04/08/20 14:50 Blood Pressure 97/54 L 04/08/20 14:20 O2 Sat by Pulse Oximetry (%) 99 04/08/20 11:30 Lab Results WBC 14.8 K/mm3 (4.0-10.0) H 04/08/20 13:40 RBC 1.73 M/mm3 (3.60-5.2) L 04/08/20 13:40 Hgb 5.8 GM/dL (10.7-15.3) L* 04/08/20 13:40 Hct 20.0 % (32.4-45.2) L D 04/08/20 13:40 MCV 116.0 fl (80-96) H D 04/08/20 13:40 MCHC 29.1 g/dl (32.0-36.0) L 04/08/20 13:40 RDW 18.4 % (11.6-15.6) H 04/08/20 13:40 Plt Count 38 K/MM3 (134-434) L D 04/08/20 13:40 INR 2.71 (0.83-1.09) H 04/08/20 11:50 Sodium 131 mmol/L (136-145) L 04/08/20 13:40 Potassium 6.6 mmol/L (3.5-5.1) H* 04/08/20 13:40 Chloride 93 mmol/L (98-107) L 04/08/20 13:40 Carbon Dioxide 10 mmol/L (21-32) L 04/08/20 13:40 Anion Gap 28 MMOL/L (8-16) H 04/08/20 13:40 BUN 58.1 mg/dL (7-18) H 04/08/20 13:40 Creatinine 2.9 mg/dL (0.55-1.3) H 04/08/20 13:40 Random Glucose 54 mg/dL (74-106) L 04/08/20 13:40 Calcium 8.2 mg/dL (8.5-10.1) L 04/08/20 13:40 Blood Type O POSITIVE 04/08/20 10:30 Imaging to date reviewed and hospital course to date reviewed.In the ED she was noted to have BRB when the NGT was inserted; I found it to be coiled in her espohagus and repositioned it and it then drained dark blood. Patient was started to be resuscitated in the ED. IMP: hypovolemic shock/sepsis/GI bleed most likely due to an intraabdominal source pending identification. PLAN: At the present time the patient is not a surgical candidate as there is no definitive dx. on imaging for her presenting clinical picture; in addition given her markedly abnormal lactate and VBG I believe surgery at this point borders on medical futility; in the interim she should be maximally resuscitated and txed in the ICU; GI should be consulted for possible EGD to evaluate for the source of the UGI bleeding. I spoke with the patients daughter and advised her that surgery at this time for an unknown problem would border on medical futility. Ildefonso Wilhelm MD FACS
[2020-04-08 17:43] LABS: VENOUS BASE EXCESS -16.5 mmol/L (-2-2); VENOUS O2 SATURATION 37.9 % (70-80); VENOUS PCO2 62.1 mmHg (38-52)
[2020-04-08 17:44] LABS: BASO % 0.1 % (0-2.0); EOS % 2.3 % (0-4.5); HEMATOCRIT 19.7 % (32.4-45.2); LYMPH % 15.8 % (8-40); MCH 29.8 pg (25.7-33.7); MCHC 31.6 g/dl (32.0-36.0); MEAN CELL VOLUME 94.4 fl (80-96); MEAN PLT VOLUME 8.5 fl (7.5-11.1); MONO % 0.6 % (3.8-10.2); NEUT % 81.2 % (42.8-82.8); RBC 2.08 M/mm3 (3.60-5.2); RDW 16.9 % (11.6-15.6); WHITE BLOOD COUNT 6.5 K/mm3 (4.0-10.0)
[2020-04-08 17:48] LABS: VENOUS PH 6.973 (7.310-7.410)
[2020-04-08 17:49] LABS: HEMOGLOBIN 6.2 GM/dL (10.7-15.3); PLATELET COUNT 18 K/MM3 (134-434)
[2020-04-08] MEDS ORDERED: CEFTRIAXONE 1 GM in DEXTROSE 5%-WATER 100 ML IVPB ONE (18:14)
[2020-04-08 18:15] LABS: ALBUMIN 0.5 g/dl (3.4-5.0); BLOOD UREA NITROGEN 51.1 mg/dL (7-18); CALCIUM 7.9 mg/dL (8.5-10.1); CREATININE 2.6 mg/dL (0.55-1.3); MAGNESIUM 2.8 mg/dL (1.8-2.4); TOT PROT 1.2 g/dl (6.4-8.2)
[2020-04-08 18:16] LABS: BILIRUBIN,TOTAL 1.3 mg/dL (0.2-1)
[2020-04-08 18:21] LABS: POTASSIUM 7.8 mmol/L (3.5-5.1)
[2020-04-08] MEDS ORDERED: FUROSEMIDE 40 MG/4 ML INJECTABLE VIAL IVPUSH ONE ×2 (18:24→18:41)
[2020-04-08] MEDS ORDERED: OCTREOTIDE ACETATE 200 MCG, OCTREOTIDE ACETATE 1,000 MCG in DEXTROSE 5%-WATER - 496 ML IVPB SCH (18:30)
[2020-04-08] MEDS ORDERED: ALBUTEROL SO4 0.083% IH SOL 2.5 MG/3 ML VIAL.NEB. NEB ONE (18:34)
[2020-04-08] MEDS ORDERED: SODIUM BICARBONATE 8.4% 50 MEQ/50 ML VIAL ONE ×2 (18:34→18:49)
[2020-04-08] MEDS ORDERED: FUROSEMIDE 40 MG/4 ML INJECTABLE VIAL ONE (18:34)
[2020-04-08 18:42] LABS: PHOSPHOROUS 12.9 mg/dL (2.5-4.9)
[2020-04-08] MEDS ORDERED: VASOPRESSIN 20 UNITS/ML VIAL IV ONE (18:46)
[2020-04-08 19:15] LABS: ANISOCYTOSIS 1+; MACROCYTOSIS 0; PLATELET ESTIMATE DECREASED
[2020-04-08] MEDS ORDERED: METHYLENE BLUE 1% 10 MG/1 ML VIAL IVPUSH ONE (19:22)
--- NOTE | 2020-04-08 19:39 | CONSULT ---
Consultation: REQUESTING PROVIDER: CONSULT REQUEST: We have been asked to medically evaluate this patient for (specify). HISTORY OF PRESENT ILLNESS: Shasha Acuña is a 59yo woman with a PMH of NIDDM, HTN, OA, recently seen at urgent care for left low back pain with sciatica (given naproxen and flexeril) who was brought to the ED by her daughter due to altered mental status this morning. The daughter went to check on the pt this morning and found her poorly responsive, confused, and breathing abnormally. She also noted that the pt felt cold to touch and was shivering. She was very concerned and came to the ED immediately. As far as the daughter is aware, the pt has been eating normally until this morning. She is not aware of any recent symptoms, though she notes that they were told on Saturday at urgent care that the patient had a temperature of 102; she has not had any fevers at home since that time. She has not taken any additional medications other than her BP meds, Januvia, and the recently prescribed naproxen and flexeril. Per the daughter, the patient is normally alert and oriented, independent, and active at baseline. In the ED pt had a POCUS done showing acute cholecystitis. ED plan was to transfer to [facility] due to surgical comorbidities. ICU then called again 2 hours later stating pt after further workup started to decompensate and started bleeeding profusely from mouth and anus. PT now intubated and sedated. Pt being transfered to [facility] REVIEW OF SYSTEMS: Unable to answer due to AMS PHYSICAL EXAMINATION Vital Signs - 24 hr 04/08/20 04/08/20 04/08/20 10:07 10:15 10:30 Temperature 96.6 F L Pulse Rate 107 H Pulse Rate [ 86 Right Radial] Respiratory 21 H 26 H Rate Blood Pressure 111/92 Blood Pressure 108/42 L [Left Arm] O2 Sat by Pulse 100 100 99 Oximetry (%) 04/08/20 04/08/20 04/08/20 11:00 11:30 14:20 Temperature Pulse Rate 126 H Pulse Rate [ 123 H 123 H Right Radial] Respiratory 30 H 36 H Rate Blood Pressure 97/54 L Blood Pressure 88/73 L 97/36 L [Left Arm] O2 Sat by Pulse 98 99 Oximetry (%) 09/11/20 09/11/20 14:50 17:15 Temperature Pulse Rate Pulse Rate [ Right Radial] Respiratory 20 35 H Rate Blood Pressure Blood Pressure [Left Arm] O2 Sat by Pulse Oximetry (%) GENERAL: Awake, alert HEAD: No signs of trauma, normocephalic, atraumatic EYES: PERRL ENT: Auricles normal inspection, hearing grossly normal, nares patent, oropharynx clear without exudates. NECK: Normal ROM, supple, no lymphadenopathy, JVD, or masses LUNGS: clear to auscultation bilaterally HEART: Tachycardic and regular rhythm ABDOMEN: Soft, nontender, normoactive bowel sounds. EXTREMITIES : Normal inspection, Normal range of motion, no edema. No clubbing or cyanosis. NEUROLOGICAL: Cranial nerves II through XII grossly intact. SKIN: Warm, Dry, normal turgor, no rashes or lesions noted Laboratory Results - last 24 hr 04/08/20 04/08/20 04/08/20 10:30 10:30 10:30 WBC 29.6 H RBC 3.12 L Hgb 10.2 L Hct 33.4 MCV 106.8 H MCH 32.5 MCHC 30.5 L RDW 18.1 H Plt Count 57 L D MPV 10.4 D Absolute Neuts (auto) 26.4 H Neutrophils % 89.3 H D Neutrophils % (Manual) 67.7 Band Neutrophils % 12.7 Lymphocytes % 7.3 L D Lymphocytes % (Manual) 7.8 L Monocytes % 1.1 L D Monocytes % (Manual) 10 Eosinophils % 2.2 D Eosinophils % (Manual) 0.0 Basophils % 0.1 Basophils % (Manual) 0.0 Myelocytes % (Man) 0 Promyelocytes % (Man) 0 Blast Cells % (Manual) 0 Nucleated RBC % 0 Metamyelocytes 2 Hypochromia 0 Platelet Estimate Decreased Polychromasia 1+ Poikilocytosis 1+ Anisocytosis 2+ Microcytosis 0 Macrocytosis 2+ Harper Cells 1+ PT with INR INR PTT (Actin FS) Fibrinogen VBG pH 6.947 L* POC VBG pCO2 26.5 L POC VBG pO2 56.9 H VBG HCO3 5.7 L VBG O2 Sat (Verito) 70.9 VBG Base Excess -25.2 L Sodium 130 L Potassium 4.6 Chloride 90 L Carbon Dioxide 8 L Anion Gap 31 H BUN 65.2 H Creatinine 3.1 H Est GFR (CKD-EPI)AfAm 17.93 Est GFR (CKD-EPI)NonAf 15.47 POC Glucometer Random Glucose 38 L* Lactic Acid Calcium 8.8 Phosphorus Magnesium Total Bilirubin 6.6 H AST 396 H ALT 109 H Alkaline Phosphatase 221 H Troponin I 0.09 H Total Protein 5.0 L Albumin 1.9 L Total Amylase 107 Lipase 1702 H Beta-Hydroxybutyrate 3.6 H TSH 0.52 Thyroxine (T4) 7.7 Urine Color Urine Appearance Urine pH Ur Specific [place] Urine Protein Urine Glucose (UA) Urine Ketones Urine Blood Urine Nitrite Urine Bilirubin Urine Urobilinogen Ur Leukocyte Esterase Urine WBC (Auto) Urine RBC (Auto) Urine Casts (Auto) U Pathogenic Cast Auto U Epithel Cells (Auto) Urine Bacteria (Auto) Urine Yeast (Auto) Blood Type 04/08/20 04/08/20 04/08/20 10:30 10:30 10:40 WBC RBC Hgb Hct MCV MCH MCHC RDW Plt Count MPV Absolute Neuts (auto) Neutrophils % Neutrophils % (Manual) Band Neutrophils % Lymphocytes % Lymphocytes % (Manual) Monocytes % Monocytes % (Manual) Eosinophils % Eosinophils % (Manual) Basophils % Basophils % (Manual) Myelocytes % (Man) Promyelocytes % (Man) Blast Cells % (Manual) Nucleated RBC % Metamyelocytes Hypochromia Platelet Estimate Polychromasia Poikilocytosis Anisocytosis Microcytosis Macrocytosis Harper Cells PT with INR INR PTT (Actin FS) Fibrinogen VBG pH POC VBG pCO2 POC VBG pO2 VBG HCO3 VBG O2 Sat (Verito) VBG Base Excess Sodium Potassium Chloride Carbon Dioxide Anion Gap BUN Creatinine Est GFR (CKD-EPI)AfAm Est GFR (CKD-EPI)NonAf POC Glucometer 34 Random Glucose Lactic Acid 21.5 H* Calcium Phosphorus Magnesium Total Bilirubin AST ALT Alkaline Phosphatase Troponin I Total Protein Albumin Total Amylase Lipase Beta-Hydroxybutyrate TSH Thyroxine (T4) Urine Color Urine Appearance Urine pH Ur Specific [place] Urine Protein Urine Glucose (UA) Urine Ketones Urine Blood Urine Nitrite Urine Bilirubin Urine Urobilinogen Ur Leukocyte Esterase Urine WBC (Auto) Urine RBC (Auto) Urine Casts (Auto) U Pathogenic Cast Auto U Epithel Cells (Auto) Urine Bacteria (Auto) Urine Yeast (Auto) Blood Type O POSITIVE 04/08/20 04/08/20 04/08/20 11:30 11:50 11:50 WBC RBC Hgb Hct MCV MCH MCHC RDW Plt Count MPV Absolute Neuts (auto) Neutrophils % Neutrophils % (Manual) Band Neutrophils % Lymphocytes % Lymphocytes % (Manual) Monocytes % Monocytes % (Manual) Eosinophils % Eosinophils % (Manual) Basophils % Basophils % (Manual) Myelocytes % (Man) Promyelocytes % (Man) Blast Cells % (Manual) Nucleated RBC % Metamyelocytes Hypochromia Platelet Estimate Polychromasia Poikilocytosis Anisocytosis Microcytosis Macrocytosis Harper Cells PT with INR 32.30 H INR 2.71 H PTT (Actin FS) 88.5 H Fibrinogen VBG pH POC VBG pCO2 POC VBG pO2 VBG HCO3 VBG O2 Sat (Verito) VBG Base Excess Sodium Potassium Chloride Carbon Dioxide Anion Gap BUN Creatinine Est GFR (CKD-EPI)AfAm Est GFR (CKD-EPI)NonAf POC Glucometer 127 Random Glucose Lactic Acid Calcium Phosphorus Magnesium Total Bilirubin AST ALT Alkaline Phosphatase Troponin I Total Protein Albumin Total Amylase Lipase Beta-Hydroxybutyrate TSH Thyroxine (T4) Urine Color Dk yellow Urine Appearance Turbid Urine pH 5.0 Ur Specific [place] 1.020 Urine Protein 2+ H Urine Glucose (UA) Negative Urine Ketones Trace H Urine Blood 1+ H Urine Nitrite Positive H Urine Bilirubin 1+ H Urine Urobilinogen 1.0 Ur Leukocyte Esterase 1+ H Urine WBC (Auto) 160 Urine RBC (Auto) 102.5 Urine Casts (Auto) 24 U Pathogenic Cast Auto Non seen U Epithel Cells (Auto) >36 Urine Bacteria (Auto) 96.5 Urine Yeast (Auto) Non seen Blood Type 04/08/20 04/08/20 04/08/20 12:06 13:40 13:40 WBC 14.8 H RBC 1.73 L Hgb 5.8 L* Hct 20.0 L D MCV 116.0 H D MCH 33.7 MCHC 29.1 L RDW 18.4 H Plt Count 38 L D MPV 10.3 Absolute Neuts (auto) 12.4 H Neutrophils % 83.8 H Neutrophils % (Manual) 56.0 Band Neutrophils % 15.0 Lymphocytes % 13.1 D Lymphocytes % (Manual) 14.0 D Monocytes % 0.9 L Monocytes % (Manual) 3 L Eosinophils % 1.8 Eosinophils % (Manual) 0.0 Basophils % 0.4 D Basophils % (Manual) 1.0 D Myelocytes % (Man) 2 D Promyelocytes % (Man) 0 Blast Cells % (Manual) 0 Nucleated RBC % 0 Metamyelocytes 9 H D Hypochromia 0 Platelet Estimate Decreased Polychromasia 0 Poikilocytosis Anisocytosis 1+ Microcytosis 0 Macrocytosis 0 Burden Cells 2+ PT with INR INR PTT (Actin FS) Fibrinogen 117.0 L VBG pH POC VBG pCO2 POC VBG pO2 VBG HCO3 VBG O2 Sat (Verito) VBG Base Excess Sodium Potassium Chloride Carbon Dioxide Anion Gap BUN Creatinine Est GFR (CKD-EPI)AfAm Est GFR (CKD-EPI)NonAf POC Glucometer Random Glucose Lactic Acid > 15.0 H* Calcium Phosphorus Magnesium Total Bilirubin AST ALT Alkaline Phosphatase Troponin I Total Protein Albumin Total Amylase Lipase Beta-Hydroxybutyrate TSH Thyroxine (T4) Urine Color Urine Appearance Urine pH Ur Specific [place] Urine Protein Urine Glucose (UA) Urine Ketones Urine Blood Urine Nitrite Urine Bilirubin Urine Urobilinogen Ur Leukocyte Esterase Urine WBC (Auto) Urine RBC (Auto) Urine Casts (Auto) U Pathogenic Cast Auto U Epithel Cells (Auto) Urine Bacteria (Auto) Urine Yeast (Auto) Blood Type 04/08/20 04/08/20 04/08/20 13:40 13:40 14:37 WBC RBC Hgb Hct MCV MCH MCHC RDW Plt Count MPV Absolute Neuts (auto) Neutrophils % Neutrophils % (Manual) Band Neutrophils % Lymphocytes % Lymphocytes % (Manual) Monocytes % Monocytes % (Manual) Eosinophils % Eosinophils % (Manual) Basophils % Basophils % (Manual) Myelocytes % (Man) Promyelocytes % (Man) Blast Cells % (Manual) Nucleated RBC % Metamyelocytes Hypochromia Platelet Estimate Polychromasia Poikilocytosis Anisocytosis Microcytosis Macrocytosis Harper Cells PT with INR INR PTT (Actin FS) Fibrinogen VBG pH < 6.717 L* POC VBG pCO2 54.3 H POC VBG pO2 61.4 H VBG HCO3 No Result Required. VBG O2 Sat (Verito) No Result Required. VBG Base Excess No Result Required. Sodium 131 L Potassium 6.6 H* Chloride 93 L Carbon Dioxide 10 L Anion Gap 28 H BUN 58.1 H Creatinine 2.9 H Est GFR (CKD-EPI)AfAm 19.44 Est GFR (CKD-EPI)NonAf 16.77 POC Glucometer 42 Random Glucose 54 L Lactic Acid Calcium 8.2 L Phosphorus Magnesium Total Bilirubin 3.8 H D AST 407 H ALT 104 H Alkaline Phosphatase 179 H Troponin I Total Protein 3.0 L Albumin 1.1 L Total Amylase Lipase Beta-Hydroxybutyrate TSH Thyroxine (T4) Urine Color Urine Appearance Urine pH Ur Specific [place] Urine Protein Urine Glucose (UA) Urine Ketones Urine Blood Urine Nitrite Urine Bilirubin Urine Urobilinogen Ur Leukocyte Esterase Urine WBC (Auto) Urine RBC (Auto) Urine Casts (Auto) U Pathogenic Cast Auto U Epithel Cells (Auto) Urine Bacteria (Auto) Urine Yeast (Auto) Blood Type 04/08/20 04/08/20 04/08/20 16:12 16:16 17:33 WBC 6.5 RBC 2.08 L Hgb 6.2 L* Hct 19.7 L MCV 94.4 D MCH 29.8 D MCHC 31.6 L RDW 16.9 H Plt Count 18 L* D MPV 8.5 D Absolute Neuts (auto) 5.3 Neutrophils % 81.2 Neutrophils % (Manual) Band Neutrophils % Lymphocytes % 15.8 D Lymphocytes % (Manual) Monocytes % 0.6 L Monocytes % (Manual) Eosinophils % 2.3 Eosinophils % (Manual) Basophils % 0.1 Basophils % (Manual) Myelocytes % (Man) Promyelocytes % (Man) Blast Cells % (Manual) Nucleated RBC % 1 H Metamyelocytes Hypochromia Platelet Estimate Polychromasia Poikilocytosis Anisocytosis Microcytosis Macrocytosis [place]den Cells PT with INR INR PTT (Actin FS) Fibrinogen VBG pH POC VBG pCO2 POC VBG pO2 VBG HCO3 VBG O2 Sat (Verito) VBG Base Excess Sodium Potassium Chloride Carbon Dioxide Anion Gap BUN Creatinine Est GFR (CKD-EPI)AfAm Est GFR (CKD-EPI)NonAf POC Glucometer 533 493 Random Glucose Lactic Acid Calcium Phosphorus Magnesium Total Bilirubin AST ALT Alkaline Phosphatase Troponin I Total Protein Albumin Total Amylase Lipase Beta-Hydroxybutyrate TSH Thyroxine (T4) Urine Color Urine Appearance Urine pH Ur Specific [place] Urine Protein Urine Glucose (UA) Urine Ketones Urine Blood Urine Nitrite Urine Bilirubin Urine Urobilinogen Ur Leukocyte Esterase Urine WBC (Auto) Urine RBC (Auto) Urine Casts (Auto) U Pathogenic Cast Auto U Epithel Cells (Auto) Urine Bacteria (Auto) Urine Yeast (Auto) Blood Type 04/08/20 04/08/20 04/08/20 17:33 17:33 18:36 WBC RBC Hgb Hct MCV MCH MCHC RDW Plt Count MPV Absolute Neuts (auto) Neutrophils % Neutrophils % (Manual) Band Neutrophils % Lymphocytes % Lymphocytes % (Manual) Monocytes % Monocytes % (Manual) Eosinophils % Eosinophils % (Manual) Basophils % Basophils % (Manual) Myelocytes % (Man) Promyelocytes % (Man) Blast Cells % (Manual) Nucleated RBC % Metamyelocytes Hypochromia Platelet Estimate Polychromasia Poikilocytosis Anisocytosis Microcytosis Macrocytosis Harper Cells PT with INR INR PTT (Actin FS) Fibrinogen VBG pH 6.973 L* POC VBG pCO2 62.1 H POC VBG pO2 33.8 VBG HCO3 14.1 L VBG O2 Sat (Verito) 37.9 L VBG Base Excess -16.5 L Sodium 133 L Potassium 7.8 H* Chloride 85 L Carbon Dioxide 19 L Anion Gap 29 H BUN 51.1 H Creatinine 2.6 H Est GFR (CKD-EPI)AfAm 22.18 Est GFR (CKD-EPI)NonAf 19.14 POC Glucometer 275 Random Glucose 402 H* Lactic Acid Calcium 7.9 L Phosphorus 12.9 H* Magnesium 2.8 H Total Bilirubin 1.3 H D AST 213 H ALT 44 Alkaline Phosphatase 88 Troponin I Total Protein 1.2 L Albumin 0.5 L Total Amylase Lipase Beta-Hydroxybutyrate TSH Thyroxine (T4) Urine Color Urine Appearance Urine pH Ur Specific [place] Urine Protein Urine Glucose (UA) Urine Ketones Urine Blood Urine Nitrite Urine Bilirubin Urine Urobilinogen Ur Leukocyte Esterase Urine WBC (Auto) Urine RBC (Auto) Urine Casts (Auto) U Pathogenic Cast Auto U Epithel Cells (Auto) Urine Bacteria (Auto) Urine Yeast (Auto) Blood Type Active Medications Generic Name Dose Route Start Last Admin Trade Name Freq PRN Reason Stop Dose Admin Calcium Chloride 1 gm 04/08/20 18:25 Calcium Chloride 10% - IVPUSH ONCE PRN Acidosis Chlorhexidine Gluconate 1 applic 04/08/20 22:00 Hibiclens For Decolonization - TP HS GWENDOLYN IV Flush 4 ml 04/08/20 15:01 Triple Lumen Flush IVPUSH PRN PRN Protocol Dextrose/Lactated Ringer's 1,000 mls @ 125 mls/hr 04/08/20 11:00 04/08/20 11:00 D5-Lr - IV 125 mls/hr ASDIR GWENDOLYN Administration Sodium Bicarbonate 150 meq/ 1,100 mls @ 125 mls/hr 04/08/20 12:45 04/08/20 14:04 Dextrose IVPB 04/08/20 21:32 125 mls/hr NOW ONE Administration Norepinephrine Bitartrate 16, 500 mls @ 9.375 mls/hr 04/08/20 14:15 04/08/20 14:20 000 mcg/ Sodium Chloride IV 5 mcg/min TITR GWENDOLYN 9.375 mls/hr Administration Protocol 5 MCG/MIN Fentanyl 500 mcg/ Dextrose 100 mls @ 0 mls/hr 04/08/20 14:45 04/08/20 14:55 IVPB 25 mcg/hr TITR GWENDOLYN 5 mls/hr Administration Titrate Dexmedetomidine/Sodium Chloride 400 mcg in 100 mls @ 2.654 mls/hr 04/08/20 14:45 04/08/20 15:10 Precedex 400 Mcg/100 Ml Inject IVPB 0.2 mcg/kg/hr TITR GWENDOLYN 2.654 mls/hr Administration 0.2 MCG/KG/HR Octreotide Acetate 200 mcg/ 500 mls @ 20.833 mls/hr 04/08/20 18:30 Octreotide Acetate 1,000 mcg/ IVPB Dextrose ASDIR GWENDOLYN Mupirocin 1 applic 04/08/20 12:30 Bactroban Ointment (For Decolonization) - NS 04/13/20 12:29 BID GWENDOLYN Phenylephrine HCl 200 mcg 04/08/20 14:00 Carlos-Synephrine - IVPB Q3M PRN HYPOTENSION Sodium Bicarbonate 50 meq 04/08/20 18:23 Sodium Bicarbonate 8.4% - IVPUSH ONCE PRN Acidosis ASSESSMENT/PLAN: Dispo: We will continue to follow the patient. Thank you for this consultative opportunity. Neuro: intubated and sedated Cardiac - hypotensive likely 2/2 GI bleed with DIC vs infectious etiology causing DIC vs other 0Cardiac monitoring Trop .09 potassium 6.6 Resp - intubated -ards developing LV vent strategy Saturation >92% Gi bleed/ heme onc: 4prbcs, 3FFp, [address] Riddle consulted. Phenylephrine and levo Pantoprazole 80 mg push, drip DIC- likely 2/2 infectious ?cholecystitis cryo 5 units Platelets goal to keep greater than 50 with bleeding greater than 20 Dispo - Pt was transfered to [facility] Visit type - Emergency Visit Emergency Visit: Yes Care time: The patient presented to the Emergency Department on the above date and was hospitalized for further evaluation of their emergent condition. - New Patient This patient is new to me today: Yes Date on this admission: 04/08/20 - Critical Care Critical Care patient: Yes Total Critical Care Time (in minutes): 36 Critical Care Statement: The care of this patient involved high complexity decision making to prevent further life threatening deterioration of the patient's condition and/or to evaluate & treat vital organ system(s) failure or risk of failure. ATTENDING PHYSICIAN STATEMENT I saw and evaluated the patient. I reviewed the resident's note and discussed the case with the resident. I agree with the resident's findings and plan as documented. SUBJECTIVE: OBJECTIVE: ASSESSMENT AND PLAN:
[2020-04-08] MEDS ORDERED: SODIUM BICARBONATE 8.4% 50 MEQ/50 ML DISP.SYRIN IVPUSH PRN (19:46)
[2020-04-08] MEDS ORDERED: CALCIUM CHLORIDE 10% 1 GM/10 ML *VIAL IVPUSH ONE (19:47)
[2020-04-08] MEDS ORDERED: VASOPRESSIN 40 UNITS in SODIUM CHLORIDE 98 ML IVPB SCH (20:00)
[2020-04-08] MEDS ORDERED: PHENYLEPHRINE NS PREMIX 25,000 MCG/250 ML BAG CVP SCH (20:00)
[2020-04-08 20:10] LABS: PLATELET ESTIMATE DECREASED
[2020-04-08 20:11] VITALS: BP 56/47; PULSE 74
[2020-04-08] MEDS ORDERED: CHLORHEXIDINE GLUCONATE 4% CLEANSER FOR DECOLONIZATION TP SCH (22:00)
--- NOTE | 2020-04-11 11:38 | EKG ---
Test Reason : Blood Pressure : / mmHG Vent. Rate : 096 BPM Atrial Rate : 096 BPM P-R Int : 202 ms QRS Dur : 158 ms QT Int : 384 ms P-R-T Axes : 059 004 127 degrees QTc Int : 485 ms NORMAL SINUS RHYTHM LEFT BUNDLE BRANCH BLOCK ABNORMAL ECG WHEN COMPARED WITH ECG OF 08-APR-2020 10:48, SINUS RHYTHM HAS REPLACED ATRIAL FIBRILLATION LEFT BUNDLE BRANCH BLOCK IS NOW PRESENT Confirmed by AVIVA TANNER MD ([id number]) on 04/11/2020 11:38:46 AM Referred By: Confirmed By:AVIVA TANNER MD
== END 2020-04-08 20:17 | disposition short-term general hospital (02) ==
LOC: JER 10:02
PROC: 0BH17EZ Insertion of Endotracheal Airway into Trachea, Via Natural or Artificial Opening (ICD-10-PCS; principal; 2020-04-08)
PROC: 02HV33Z Insertion of Infusion Device into Superior Vena Cava, Percutaneous Approach (ICD-10-PCS; 2020-04-08)
DX: A41.9 Sepsis, unspecified organism (principal); E87.2 Acidosis; N39.0 Urinary tract infection, site not specified; J96.01 Acute respiratory failure with hypoxia
CPT/HCPCS: 36415; 36430; 36511; 47532; 71045-TC-FY; 71275-TC; 74019-TC-FY; 74174-TC; 76705-TC; 80053; 81003; 82010; 82150; 82803; 82962; 83605; 83690; 83735; 84100; 84436; 84443; 84484; 85025; 85384; 85610; 85730; 86850; 86900; 86901; 86922; 87040; 87086; 87186; 93005; 93010; 99291; 99292; A4358; C1729; P9016; P9017; P9034; P9058; Q9967